=== PATIENT | female | born 1980 | race Caucasian/White ===

== ENCOUNTER 2023-11-19 22:20 | Emergency (ER) | payer OTHER ==
[2023-11-19 22:36] VITALS: BP 132/79; PULSE 84; RESP 16; TEMP 98.5; BMI 34.7
[2023-11-19 23:04] LABS: HCG,QUALITATIVE URINE Negative
[2023-11-19 23:13] LABS: EPITHELIAL CELLS 0-5 /hpf
[2023-11-19] MEDS ORDERED: KETOROLAC TROMETHAMINE 60 MG/2 ML VIAL IM ONE (23:32)
[2023-11-19] MEDS ORDERED: KETOROLAC TROMETHAMINE 60 MG/2 ML VIAL ONE (23:37)
== END 2023-11-20 00:39 | disposition home or self-care (01) ==
LOC: FER 22:20
PROC: 3E0233Z Introduction of Anti-inflammatory into Muscle, Percutaneous Approach (ICD-10-PCS; principal; 2023-11-19)
DX: M54.50 Low back pain, unspecified (principal); N23 Unspecified renal colic; R11.0 Nausea
CPT/HCPCS: 81003; 81015; 84703; 87086; 87186; 99284-25

== ENCOUNTER 2023-11-20 15:05 | Inpatient (IN) | payer OTHER ==
[2023-11-20] MEDS ORDERED: SODIUM CHLORIDE 1,000 ML IV STA (15:19)
[2023-11-20] MEDS ORDERED: KETOROLAC TROMETHAMINE 30 MG/1 ML VIAL IVPUSH ONE (15:19)
[2023-11-20 15:26] VITALS: BMI 34.7
[2023-11-20] MEDS ORDERED: KETOROLAC TROMETHAMINE 30 MG/1 ML VIAL ONE (15:26)
[2023-11-20 15:37] LABS: HEMATOCRIT 37.2 % (32.4-45.2); HEMOGLOBIN 12.2 G/dL (10.7-15.3); MCH 29.1 pg (25.7-33.7); MCHC 32.8 g/dl (32.0-36.0); MEAN CELL VOLUME 88.8 fl (80-96); MEAN PLT VOLUME 8.1 fl (7.5-11.1); PLATELET COUNT 344.1 10^3/uL (134-434); RBC 4.19 10^6/uL (3.60-5.2); RDW 13.5 % (11.6-15.6); WHITE BLOOD COUNT 12.9 10^3/uL (4.0-10.8)
[2023-11-20 15:54] LABS: ALBUMIN 3.9 g/dl (3.4-5.0); BILIRUBIN,TOTAL 0.5 mg/dl (0.2-1); CALCIUM 9.4 mg/dl (8.5-10.1); CREATININE 0.6 mg/dl (0.6-1.3); TOT PROT 6.7 g/dl (6.4-8.2)
[2023-11-20] MEDS ORDERED: ONDANSETRON 4 MG/2 ML VIAL IVPUSH ONE (16:54)
[2023-11-20] MEDS ORDERED: ONDANSETRON 4 MG/2 ML VIAL ONE (16:56)
[2023-11-20] MEDS ORDERED: ACETAMINOPHEN 1000 MG/100 ML BAG IVPB ONE (17:34)
[2023-11-20] MEDS ORDERED: CEFTRIAXONE 1,000 MG in DEXTROSE 5%-WATER - 50 ML IVPB ONE (17:34)
[2023-11-20] MEDS ORDERED: cefTRIAXone SODIUM 1 GM VIAL ONE (17:57)
[2023-11-20] MEDS ORDERED: ACETAMINOPHEN INJECTION 100 ML IVPB ONE (17:57)
[2023-11-20] MEDS ORDERED: morphine CARPU-JECT 8 MG/1 ML DISP.SYRIN IVPUSH ONE (20:33)
[2023-11-20] MEDS ORDERED: morphine SULFATE 4 MG/ML VIAL ONE (20:35)
[2023-11-20] MEDS ORDERED: ONDANSETRON 4 MG/2 ML VIAL IVPUSH PRN (21:22)
[2023-11-21] MEDS: SODIUM CHLORIDE 1,000 ML IV SCH ×2 (00:12→21:48)
[2023-11-21] MEDS: ACETAMINOPHEN 1000 MG/100 ML BAG IVPB PRN ×3 (00:13→16:34)
[2023-11-21] MEDS: DOCUSATE SODIUM 100 MG CAPSULE (FP) PO SCH ×2 (00:21→21:02)
[2023-11-21 09:27] LABS: HEMATOCRIT 32.6 % (32.4-45.2); HEMOGLOBIN 10.9 GM/dL (10.7-15.3); MCH 29.5 pg (25.7-33.7); MCHC 33.4 g/dl (32.0-36.0); MEAN CELL VOLUME 88.2 fl (80-96); MEAN PLT VOLUME 8.2 fl (7.5-11.1); PLATELET COUNT 302 10^3/uL (134-434); RBC 3.69 M/mm3 (3.60-5.2); WHITE BLOOD COUNT 14.1 K/mm3 (4.0-10.0)
[2023-11-21] MEDS: TAMSULOSIN HCL 0.4 MG CAP PO SCH (09:31)
[2023-11-21] MEDS: CEFTRIAXONE 1 GM in DEXTROSE 5%-WATER - 50 ML IVPB SCH (09:31)
[2023-11-21 09:35] LABS: LYMPH % 6.4 % (8-40); MONO % 11.3 % (3.8-10.2)
[2023-11-21 09:36] LABS: BASO % 0.9 % (0-2.0)
[2023-11-21 10:12] LABS: CALCIUM 8.3 mg/dl (8.5-10.1); CREATININE 0.6 mg/dl (0.6-1.3); MAGNESIUM 1.6 mg/dL (1.8-2.4); PHOSPHOROUS 2.3 (2.5-4.9); POTASSIUM 3.8 mmol/L (3.5-5.1)
[2023-11-21] MEDS ORDERED: MAGNESIUM SULF 50% (8.12 MEQ/2 ML-1 GM VIAL) IVPB ONE (11:30)
[2023-11-21] MEDS: KETOROLAC TROMETHAMINE 30 MG/1 ML VIAL IVPUSH SCH ×2 (11:39→18:14)
[2023-11-21] MEDS ORDERED: SODIUM PHOSPHATE - 15 MM in SODIUM CHLORIDE 250 ML IVPB ONE (13:00)
[2023-11-21] MEDS ORDERED: morphine SULFATE 4 MG/ML VIAL IVPUSH PRN (20:50)
[2023-11-21] MEDS: morphine SULFATE 4 MG/ML VIAL IVPUSH PRN (21:01)
[2023-11-21] MEDS ORDERED: ACETAMINOPHEN 325 MG TABLET (FP) PO PRN (23:50)
[2023-11-22] MEDS ORDERED: ACETAMINOPHEN 1000 MG/100 ML BAG IVPB PRN (01:27)
[2023-11-22] MEDS: KETOROLAC TROMETHAMINE 30 MG/1 ML VIAL IVPUSH SCH ×3 (02:19→17:04)
[2023-11-22] MEDS: morphine SULFATE 4 MG/ML VIAL IVPUSH PRN ×3 (06:04→20:36)
[2023-11-22 08:38] LABS: HEMOGLOBIN 10.4 G/dL (10.7-15.3); MCH 28.7 pg (25.7-33.7); MCHC 32.4 g/dl (32.0-36.0); MEAN CELL VOLUME 88.7 fl (80-96); MEAN PLT VOLUME 8.2 fl (7.5-11.1); RBC 3.61 10^6/uL (3.60-5.2); RDW 13.9 % (11.6-15.6); WHITE BLOOD COUNT 13.2 10^3/uL (4.0-10.8)
[2023-11-22] MEDS: ACETAMINOPHEN 500 MG TABLET (FP) PO SCH ×3 (09:10→22:20)
[2023-11-22] MEDS: CEFTRIAXONE 1 GM in DEXTROSE 5%-WATER - 50 ML IVPB SCH (09:11)
[2023-11-22] MEDS: TAMSULOSIN HCL 0.4 MG CAP PO SCH (09:11)
[2023-11-22 11:01] LABS: ALBUMIN 3.2 g/dl (3.4-5.0); BILIRUBIN,TOTAL 0.4 mg/dl (0.2-1); CALCIUM 7.8 mg/dl (8.5-10.1); CREATININE 0.5 mg/dl (0.6-1.3); MAGNESIUM 2.2 mg/dL (1.8-2.4); PHOSPHOROUS 1.7 (2.5-4.9); POTASSIUM 3.7 mmol/L (3.5-5.1)
[2023-11-22] MEDS ORDERED: POTASSIUM PHOSPHATE 30 MM in SODIUM CHLORIDE 500 ML IVPB ONE (18:29)
[2023-11-22] MEDS: SODIUM CHLORIDE 1,000 ML IV SCH (22:19)
[2023-11-22] MEDS: DOCUSATE SODIUM 100 MG CAPSULE (FP) PO SCH (22:19)
[2023-11-23] MEDS: KETOROLAC TROMETHAMINE 30 MG/1 ML VIAL IVPUSH SCH ×3 (01:20→18:01)
[2023-11-23] MEDS: ACETAMINOPHEN 500 MG TABLET (FP) PO SCH ×3 (05:22→21:53)
[2023-11-23 08:22] LABS: HEMATOCRIT 30.3 % (32.4-45.2); MCH 29.2 pg (25.7-33.7); MCHC 33.1 g/dl (32.0-36.0); MEAN CELL VOLUME 88.2 fl (80-96); MEAN PLT VOLUME 8.5 fl (7.5-11.1); PLATELET COUNT 284.8 10^3/uL (134-434); RBC 3.44 10^6/uL (3.60-5.2); RDW 13.6 % (11.6-15.6); WHITE BLOOD COUNT 11.2 10^3/uL (4.0-10.8)
[2023-11-23 09:12] LABS: ALBUMIN 3.1 g/dl (3.4-5.0); BILIRUBIN,TOTAL 0.5 mg/dl (0.2-1); CREATININE 0.4 mg/dl (0.6-1.3); PHOSPHOROUS 2.8 (2.5-4.9); POTASSIUM 3.9 mmol/L (3.5-5.1)
[2023-11-23] MEDS: CEFTRIAXONE 1 GM in DEXTROSE 5%-WATER - 50 ML IVPB SCH (09:40)
[2023-11-23] MEDS: TAMSULOSIN HCL 0.4 MG CAP PO SCH (09:40)
[2023-11-23 11:27] LABS: RETICULOCYTES 1.11 % (0.5-1.5)
[2023-11-23] MEDS: TRIMETHOBENZAMIDE HCL 200MG/2ML INJ IM PRN (12:20)
[2023-11-23] MEDS: POLYETHYLENE GLYCOL (HEALTHYLAX) 3350 17 GM PACKET PO SCH (14:36)
[2023-11-23] MEDS: CEFAZOLIN SODIUM 2 GM in DEXTROSE 5%-WATER 100 ML IVPB SCH (18:35)
[2023-11-23] MEDS: DOCUSATE SODIUM 100 MG CAPSULE (FP) PO SCH (21:55)
[2023-11-24] MEDS: CEFAZOLIN SODIUM 2 GM in DEXTROSE 5%-WATER 100 ML IVPB SCH ×3 (01:44→20:04)
[2023-11-24] MEDS: KETOROLAC TROMETHAMINE 30 MG/1 ML VIAL IVPUSH SCH ×2 (01:45→11:52)
[2023-11-24] MEDS: ACETAMINOPHEN 500 MG TABLET (FP) PO SCH (05:45)
[2023-11-24 08:19] LABS: HEMATOCRIT 30.2 % (32.4-45.2); HEMOGLOBIN 10.4 G/dL (10.7-15.3); MCH 30.4 pg (25.7-33.7); MCHC 34.5 g/dl (32.0-36.0); MEAN CELL VOLUME 88.4 fl (80-96); MEAN PLT VOLUME 8.4 fl (7.5-11.1); PLATELET COUNT 349.8 10^3/uL (134-434); RBC 3.42 10^6/uL (3.60-5.2); RDW 14.4 % (11.6-15.6); WHITE BLOOD COUNT 10.9 10^3/uL (4.0-10.8)
[2023-11-24 08:35] LABS: ALBUMIN 3.3 g/dl (3.4-5.0); BILIRUBIN,TOTAL 0.5 mg/dl (0.2-1); CALCIUM 8.6 mg/dl (8.5-10.1); CREATININE 0.5 mg/dl (0.6-1.3); MAGNESIUM 1.9 mg/dL (1.8-2.4); PHOSPHOROUS 2.7 (2.5-4.9); POTASSIUM 3.8 mmol/L (3.5-5.1); TOT PROT 6.4 g/dl (6.4-8.2)
[2023-11-24] MEDS: TAMSULOSIN HCL 0.4 MG CAP PO SCH (09:29)
[2023-11-24] MEDS: POLYETHYLENE GLYCOL (HEALTHYLAX) 3350 17 GM PACKET PO SCH (09:29)
[2023-11-24] MEDS: ACETAMINOPHEN 500 MG TABLET (FP) PO PRN (20:13)
[2023-11-24] MEDS: TRIMETHOBENZAMIDE HCL 200MG/2ML INJ IM PRN (21:41)
[2023-11-24] MEDS: DOCUSATE SODIUM 100 MG CAPSULE (FP) PO SCH (21:52)
[2023-11-25] MEDS: CEFAZOLIN SODIUM 2 GM in DEXTROSE 5%-WATER 100 ML IVPB SCH ×2 (01:24→09:41)
[2023-11-25 02:08] VITALS: RESP 18
[2023-11-25] MEDS: ACETAMINOPHEN 500 MG TABLET (FP) PO PRN (06:29)
[2023-11-25 08:58] LABS: HEMOGLOBIN 10.6 G/dL (10.7-15.3); MCH 29.2 pg (25.7-33.7); MCHC 33.2 g/dl (32.0-36.0); MEAN CELL VOLUME 87.8 fl (80-96); MEAN PLT VOLUME 8.1 fl (7.5-11.1); PLATELET COUNT 418.2 10^3/uL (134-434); RBC 3.64 10^6/uL (3.60-5.2); RDW 14.2 % (11.6-15.6)
[2023-11-25 09:12] LABS: ALBUMIN 3.3 g/dl (3.4-5.0); BILIRUBIN,TOTAL 0.4 mg/dl (0.2-1); CALCIUM 8.7 mg/dl (8.5-10.1); CREATININE 0.5 mg/dl (0.6-1.3); MAGNESIUM 1.9 mg/dL (1.8-2.4); PHOSPHOROUS 3.4 (2.5-4.9); TOT PROT 6.5 g/dl (6.4-8.2)
[2023-11-25] MEDS: TAMSULOSIN HCL 0.4 MG CAP PO SCH (09:41)
[2023-11-25] MEDS: POLYETHYLENE GLYCOL (HEALTHYLAX) 3350 17 GM PACKET PO SCH (10:20)
[2023-11-25 14:36] VITALS: BP 125/60; PULSE 81; TEMP 99
== END 2023-11-25 15:36 | disposition home or self-care (01) | DRG 690 ==
LOC: FER 15:05 → FM/S 21:21 → OBSVTOIN 11-23 07:27
PROVIDERS: ADMIT Internal Medicine; ATTEND Internal Medicine
DX: N10 Acute pyelonephritis (principal); D72.829 Elevated white blood cell count, unspecified; K59.00 Constipation, unspecified; D64.9 Anemia, unspecified; R10.32 Left lower quadrant pain; N20.0 Calculus of kidney
CPT/HCPCS: 36415; 74177-TC; 76775-TC; 80048; 80053; 82728; 83540; 83550; 83735; 84100; 84466; 85025; 85027; 85045; 87040; 87635; 99285-25; G0378; Q9967